=== PATIENT | female | born 1945 | race Hispanic/Latino ===

== ENCOUNTER → 2018-12-01 13:26 | Outpatient (BNV) | payer MEDICARE, OTHER, SELFPAY ==
--- NOTE | 2018-12-01 14:54 | PR.OPPALCARP ---
OP Palliative Care [facility] Patient Health History List Name, Facility and location of PCP: Dr. Jose Manuel Kyle [address] [place] [address] [facility] Palliative Care Assessment Prognosis: Fair [facility] Advance Care Planning Advanced Care plan discussed: Yes Who patient wants involved in care decisions: Patient would liker her , Anne Gabriel, her son, Rocael Faustin, and her daughter, Hilda Faustin, involved in her care. Primary Medical Surrogate Decision Maker?: Yes Existing Advance Directive: Yes POLST Form: Yes Comments Additional Comments: Patient, , and son reported patient had completed a document but they were not aware which one it was. RETIREMENT VILLAGE MANAGER spoke to patient's daughter, Hilda, who reported patient had created a POLST form and she had the document. Hilda reported patient does not have an Advance Directive. They agreed to take an Advance Directive home and will notify RETIREMENT VILLAGE MANAGER if they desired to complete one at the next appointment. Patient daughter was provided with RETIREMENT VILLAGE MANAGER's fax number in order to have daughter fax the document to our facility. She also reported PCP, Dr. Kyle, might have a copy. Will follow-up. [facility] Assistant To The Ceo Assessmen List Name, Facility and location of PCP: Dr. Jose Manuel Kyle [address] [place] [address] Patient Diagnosis: Colon Cancer Prognosis: Fair Current goal of care: Life-prolonging Mental Status: Alert and Oriented Coping Status: Coping well Learning needs: Cognitive Home situation: Patient lives with her , Anne Gabriel. Support System: Good Financial Status: Adequate Advance Directives: Living Will [facility] Patient/Family Meeting Care Conf Coordinator: Ly Frederick date/time/location: 11/30/2018, 2:00pm, [facility] Patient Diagnosis: Colon Cancer Participants in meeting and relationship: Nabila Gabriel, patient Anne Gabriel, Rocael Faustin, son Hilda Faustin, daughter (partially present via phone call) CAMI Tinsley RN Dr. Kim Owen, MD How are patients wishes known: Patient cognitive/verbal Who is the decision maker for the patient: Patient Discussion/Outcomes/Follow-up: Patient is a 73 year old, , female. Patient attended the Initial Palliative Care Meeting along with her , Anne Gabriel, and her son, Rocael Faustin. Patient daughter, Hilda Faustin, was placed on speaker for a portion of the meeting. Patient was A&Ox3. Patient made good eye contact. Patient mood and affect was within normal limits, and thought process was congruent with thought content for the majority of the meeting. Patient had one incident of confusion when she was asked regarding financial stability and she reported she continued to work. Patient , Anne, corrected her and told her she had already retired. At the end of the session, patient told RETIREMENT VILLAGE MANAGER that since the most recent ER visit about a month ago; patient memory has not been the same and has moments where patient requires redirection. Patient lives with her with whom she has been for 35 years. Patient has 4 children and all live out of the area. Patient son, Rocael, reported his sister, Hilda, is involved in all of patient care. Patient reported her and children are her support system. Son reported he is in town for a few weeks and then once he leaves his sister will be staying with patient for a period of time as well. Patient and reported they are meeting basic needs and do not require assistance with community resources. Patient declined feeling depressed or anxious. Patient declined having mental health treatment history. Patient educated and encouraged to do enjoyable activities to help promote her well-being. Patient daughter, Hilda, contacted to discuss patient list of medications. Patient daughter reported patient has a POLST form created and she has the document. She was provided with RETIREMENT VILLAGE MANAGER?s fax number so they can fax the document. Patient and family were provided with an Advance Directive to review once patient daughter is in town and she will notify if they would like to proceed once reviewed. Patients PCP is Dr. Kyle. 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 Patient goes to [facility]. Patient discussed concerns with appetite and loss of appetite. Patient reported also about a 40 pound weight loss. Patient reported feeling nausea and has had vomiting. Patient family requested an appetite stimulant. Patient was ordered lab work by Dr. Arriaga and based on results patient will be offered hydration. Patient and family were asked to write down a sample list of patient breakfast, lunch, and dinner for 3 days to bring to the next appointment. Patient and family requested interest in obtaining a wheelchair for ambulation due to difficulty patient has been experiencing. Patient medical diagnosis is Colon Cancer. Patients diagnosis creates mobility limitations that significantly impairs ability to participate in the patients activities of daily living either in their entirety, or in a reasonable time frame in the home and the patients mobility limitations cannot be sufficiently resolved with an appropriately fitted cane or walker. Also the use of a manual wheelchair will sufficiently improve patients ability to participate in the activities of daily living in the home and the patients is willing to use the wheelchair that is provided in the home. The patient has some one in the home that is available, willing and able to provide assistance with the wheelchair. [facility] Care Plan Follow-up Advanced Directive: Yes POLST Form: Yes Primary Medical Surrogate Decision Maker?: Yes List Name, Facility and location of PCP: Dr. Jose Manuel Kyle [address] [facility] [place] [address] *[facility] Office Visit complete [facility] Offive Visit Complete [facility] Visit Complete?: No
--- NOTE | 2018-12-01 14:57 | CWCCLINC_ITS ---
OP Palliative Care [facility] Patient Health History List Name, Facility and location of PCP: Dr. Jose Manuel Kyle [address] [place] [address] [facility] Palliative Care Assessment Prognosis: Fair [facility] Advance Care Planning Advanced Care plan discussed: Yes Who patient wants involved in care decisions: Patient would liker her , Anne Gabriel, her son, Rocael Faustin, and her daughter, Hilda Faustin, involved in her care. Primary Medical Surrogate Decision Maker?: Yes Existing Advance Directive: Yes POLST Form: Yes Comments Additional Comments: Patient, , and son reported patient had completed a document but they were not aware which one it was. MEDICAL AFFAIRS DIRECTOR spoke to patient's daughter, Hilda, who reported patient had created a POLST form and she had the document. Hilda reported patient does not have an Advance Directive. They agreed to take an Advance Directive home and will notify MEDICAL AFFAIRS DIRECTOR if they desired to complete one at the next appointment. Patient daughter was provided with MEDICAL AFFAIRS DIRECTOR's fax number in order to have daughter fax the document to our facility. She also reported PCP, Dr. Kyle, might have a copy. Will follow-up. [facility] Shearing Machine Tender Assessmen List Name, Facility and location of PCP: Dr. Jose Manuel Kyle [address] [place] [address] Patient Diagnosis: Colon Cancer Prognosis: Fair Current goal of care: Life-prolonging Mental Status: Alert and Oriented Coping Status: Coping well Learning needs: Cognitive Home situation: Patient lives with her , Anne Gabriel. Support System: Good Financial Status: Adequate Advance Directives: Living Will [facility] Patient/Family Meeting Care Conf Coordinator: Ly Frederick date/time/location: 11/30/2018, 2:00pm, [facility] Patient Diagnosis: Colon Cancer Participants in meeting and relationship: Nabila Gabriel, patient Anne Gabriel, Rocael Faustin, son Hilda Faustin, daughter (partially present via phone call) CAMI Tinsley RN Dr. Kim Owen, MD How are patients wishes known: Patient cognitive/verbal Who is the decision maker for the patient: Patient Discussion/Outcomes/Follow-up: Patient is a 73 year old, , female. Patient attended the Initial Palliative Care Meeting along with her , Anne Gabriel, and her son, Rocael Faustin. Patient daughter, Hilda Faustin, was placed on speaker for a portion of the meeting. Patient was A&Ox3. Patient made good eye contact. Patient mood and affect was within normal limits, and thought process was congruent with thought content for the majority of the meeting. Patient had one incident of confusion when she was asked regarding financial stability and she reported she continued to work. Patient , Anne, corrected her and told her she had already retired. At the end of the session, patient told MEDICAL AFFAIRS DIRECTOR that since the most recent ER visit about a month ago; patient memory has not been the same and has moments where patient requires redirection. Patient lives with her with whom she has been for 35 years. Patient has 4 children and all live out of the area. Patient son, Rocael, reported his sister, Hilda, is involved in all of patient care. Patient reported her and children are her support system. Son reported he is in town for a few weeks and then once he leaves his sister will be staying with patient for a period of time as well. Patient and reported they are meeting basic needs and do not require assistance with community resources. Patient declined feeling depressed or anxious. Patient declined having mental health treatment history. Patient educated and encouraged to do enjoyable activities to help promote her well-being. Patient daughter, Hilda, contacted to discuss patient list of medications. Patient daughter reported patient has a POLST form created and she has the document. She was provided with MEDICAL AFFAIRS DIRECTOR?s fax number so they can fax the document. Patient and family were provided with an Advance Directive to review once patient daughter is in town and she will notify if they would like to proceed once reviewed. Patients PCP is Dr. Kyle. 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 Patient goes to [facility] pharmacy. Patient discussed concerns with appetite and loss of appetite. Patient reported also about a 40 pound weight loss. Patient reported feeling nausea and has had vomiting. Patient family requested an appetite stimulant. Patient was ordered lab work by Dr. Arriaga and based on results patient will be offered hydration. Patient and family were asked to write down a sample list of patient breakfast, lunch, and dinner for 3 days to bring to the next appointment. Patient and family requested interest in obtaining a wheelchair for ambulation due to difficulty patient has been experiencing. Patient medical diagnosis is Colon Cancer. Patients diagnosis creates mobility limitations that significantly impairs ability to participate in the patients activities of daily living either in their entirety, or in a reasonable time frame in the home and the patients mobility limitations cannot be sufficiently resolved with an appropriately fitted cane or walker. Also the use of a manual wheelchair will sufficiently improve patients ability to participate in the activities of daily living in the home and the patients is willing to use the wheelchair that is provided in the home. The patient has some one in the home that is available, willing and able to provide assistance with the wheelchair. [facility] Care Plan Follow-up Advanced Directive: Yes POLST Form: Yes Primary Medical Surrogate Decision Maker?: Yes List Name, Facility and location of PCP: Dr. Jose Manuel Kyle [address] [facility] [place] [address] *[facility] Office Visit complete [facility] Offive Visit Complete [facility] Visit Complete?: No